=== PATIENT | female | born 1985 | race Caucasian/White ===

== ENCOUNTER 2017-01-27 09:32 | Emergency (ER) | payer BC ==
[2017-01-27 09:42] VITALS: BP 100/70
--- NOTE | 2017-01-27 10:04 | UC ---
Throat Pain/Nasal Denilson HPI - HPI Summary HPI Summary: 31 y/o female presents to the urgent care c/o sore, swollen glands,fever at home , difficulty swallowing, Nasal congestion, dry cough for the past 10 days. Pain is 6/10 radiates to left ear. She was tested for strep and mono yesterday, both negative. She is allergic to Augmentin. She is requesting ABX since she has been with symptoms for so long. Pt denies SOB, chest pain, N/V/D, abdominal pain , - History of Current Complaint Chief Complaint: UCGeneralIllness Stated Complaint: THROAT COMPLAINT Time Seen by Provider: 01/27/17 10:01 Hx Obtained From: Patient Hx Last Menstrual Period: 12/29/16 Onset/Duration: Gradual Onset, Lasting Days - 10 dyas, Still Present Severity: Moderate Pain Intensity: 6 Pain Scale Used: 0-10 Numeric Cough: Nonproductive Associated Signs & Symptoms: Positive: Dysphagia, Nasal Discharge - yellowish discharge, Fever - at home - Epiglottits Risk Factors Epiglottis Risk Factors: Negative - Allergies/Home Medications Allergies/Adverse Reactions: Allergies Allergy/AdvReac Type Severity Reaction Status Date / Time Amoxicillin [From Augmentin] Allergy Hives Verified 01/27/17 09:37 Clavulanic Acid Allergy Hives Verified 01/27/17 09:37 [From Augmentin] PMH/Surg Hx/FS Hx/Imm Hx Previously Healthy: Yes Respiratory History: Asthma - Surgical History Surgical History: Yes Surgery Procedure, Year, and Place: appendix - Family History Known Family History: Positive: Hypertension Family History: Breast cancer, uterine CA - Social History Occupation: Employed Full-time Lives: With Family Alcohol Use: Occasionally Substance Use Type: None Smoking Status (MU): Never Smoked Tobacco - Immunization History Most Recent Influenza Vaccination: up to date Most Recent Tetanus Shot: up tp date Review of Systems Constitutional: Fever - subjective at home Skin: Negative Eyes: Negative ENT: Sore Throat, Ear Ache, Nasal Discharge - yellwosih discharge, Sinus Congestion Respiratory: Cough - dry Cardiovascular: Negative Gastrointestinal: Negative Genitourinary: Negative Motor: Negative Neurovascular: Negative Musculoskeletal: Negative Neurological: Negative Psychological: Negative Is Patient Immunocompromised?: No All Other Systems Reviewed And Are Negative: Yes Physical Exam Triage Information Reviewed: Yes Appearance: Well-Appearing, No Pain Distress, Well-Nourished Vital Signs: Initial Vital Signs Temp 98.6 F 01/27/17 09:38 Pulse 73 01/27/17 09:38 Resp 16 01/27/17 09:38 BP 100/70 01/27/17 09:38 Pulse Ox 100 01/27/17 09:38 Vital Signs Reviewed: Yes Eye Exam: Normal Eyes: Positive: Conjunctiva Clear - PERRLA, EOMI ENT: Positive: Normal ENT inspection, Hearing grossly normal, Pharyngeal erythema - with pethechial palate, no exudate, Nasal congestion - mild edematoud nasal mucosa with yellowish nasal discharge, TMs normal, Tonsillar swelling. Negative: Tonsillar exudate Neck exam: Normal Neck: Positive: Supple, Nontender, Enlarged Nodes @ - B/L anterior cervical lymphadenoapathy tender to palpation Respiratory Exam: Normal Respiratory: Positive: Chest non-tender, Lungs clear, Normal breath sounds Cardiovascular Exam: Normal Cardiovascular: Positive: RRR, No Murmur, Pulses Normal Abdominal Exam: Normal Abdomen Description: Positive: Nontender, No Organomegaly, Soft. Negative: CVA Tenderness (R), CVA Tenderness (L) Bowel Sounds: Positive: Present Musculoskeletal Exam: Normal Throat Pain/Nasal Course/Dx - Course Course Of Treatment: 31 y/o female presents to the urgent care c/o sore, swollen glands,fever at home, difficulty swallowing, Nasal congestion, dry cough for the past 10 days. Pain is 6/10 radiates to left ear. She was tested for strep and mono yesterday, both negative. She is allergic to Augmentin. She is requesting ABX since she has been with symptoms for so long. Pt denies SOB, chest pain, N/V/D, abdominal pain. Hx obtained. Pt Rx Z-pelon and Iburpofen PO to alleviate symptoms. Pt given excuse for work as requested. Pt advised to rest, increase fluid intake, avoid strenuous exercise and eat well. Also advised If symptoms do not improve or worsen please return to the urgent care or f/u with your PCP for further evaluation and treatment. Pt understood and agreed. - Differential Dx/Diagnosis Differential Diagnosis/HQI/PQRI: Influenza, Laryngitis, Mononucleosis, Pharyngitis, Sinusitis, Tonsillitis, URI Provider Diagnoses: 1- Acute pharyngitis Discharge - Discharge Plan Condition: Stable Disposition: HOME Prescriptions: Azithromycin TAB* [Zithromax TAB (Z-PELON) 250 mg #6 tabs] 2 tab PO .TODAY, THEN 1 DAILY #1 pelon Ibuprofen TAB* [Motrin TAB* 800 MG] 800 mg PO Q6H #20 tab Patient Education Materials: Pharyngitis (ED) Forms: *Work Release Referrals: Sydnie Man, DOCUMENTATION ANALYST [Primary Care Provider] - If Needed Additional Instructions: 1- Please take the full course of the antibiotic to avoid resistance. 2-Please take ibuprofen PO q6-8hrs prn as instructed after meals to alleviate pain and swelling. Rest, increse fluid intake, eat well, avoid strenuous exercise 3-If symptoms do not improve or worsen please return to the urgent care or f/u with your PCP for further evaluation and treatment.
== END 2017-01-27 10:20 | disposition home or self-care (01) ==
LOC: UCEAST 09:32
DX: J02.0 Streptococcal pharyngitis (principal)
CPT/HCPCS: 99212; G0463

== ENCOUNTER 2018-09-03 11:29 | Day surgery (SDC) | payer OTHER ==
[~2018-09-03 11:29] MED LIST: Buffered Lidocaine 1% SYRIN* 1 ML/SYRINGE INTRADERM ONE; Dexamethasone IV* 4 MG/ML 1 ML (4 MG) IV SLOW PU ONE; Famotidine IV* 10 MG/ML 2 ML (20 mg) IV ONE; Lactated Ringers 1000 ML Bag* 1,000 ML IV SCH
[2018-09-03] MEDS ORDERED: Dexamethasone IV* 4 MG/ML 1 ML (4 MG) ONE (12:11)
[2018-09-03] MEDS ORDERED: Buffered Lidocaine 1% SYRIN* 1 ML/SYRINGE INTRADERM ONE (12:11)
[2018-09-03] MEDS ORDERED: Famotidine IV* 10 MG/ML 2 ML (20 mg) ONE (12:11)
[2018-09-03] MEDS ORDERED: Midazolam* 1 MG/ML 2 ML VIAL (2 MG) ONE (13:32)
[2018-09-03] MEDS ORDERED: fentaNYL* 50 MCG/ML 2 ML VIAL (100 MCG VIAL) ONE ×2 (13:32→15:08)
[2018-09-03] MEDS ORDERED: Oxymetazoline 0.05% NASAL SPR* 15 ML BTL ONE (13:40)
[2018-09-03] MEDS ORDERED: Lidocaine 4% TOPICAL* 50 ML TOP.SOLN ONE (13:41)
[2018-09-03] MEDS ORDERED: Bacitracin OINTMENT* 0.5% 0.5 oz TUBE ONE (13:41)
[2018-09-03] MEDS ORDERED: Lidocain 1% EPI 1:100,000 * 30 ML MDV ONE (13:41)
[2018-09-03] MEDS ORDERED: Triamcinolone Acetonide* 40 MG/ML 1 ML VIAL ONE (13:41)
[2018-09-03] MEDS ORDERED: Ondansetron INJ* 2 MG/ML VIAL ONE (13:42)
[2018-09-03] MEDS ORDERED: Lidocaine 2% PF * 5 ML VIAL ONE (13:42)
[2018-09-03] MEDS ORDERED: Propofol* 10 MG/ML 20 ML BTL ONE (13:42)
[2018-09-03] MEDS ORDERED: Ibuprofen TAB* 400 MG ONE (14:58)
[2018-09-03] MEDS ORDERED: DiMENhydriNATE IV* 50 MG/ML VIAL IV PUSH PRN (15:43)
[2018-09-03] MEDS ORDERED: fentaNYL* 50 MCG/ML 2 ML VIAL (100 MCG VIAL) IV PRN (15:43)
[2018-09-03] MEDS ORDERED: Naloxone* 0.4 MG/ML 1 ML VIAL IV PRN (15:43)
[2018-09-03 16:38] VITALS: BP 113/72
--- NOTE | 2018-09-03 23:24 | OP ---
DATE OF OPERATION: 09/03/18 - SDS DATE OF : 81 SURGEON: Archie Tobin MD PRE-OP DIAGNOSIS: Chronic ethmoidal maxillary sinusitis with nasal polyposis. POST-OP DIAGNOSIS: Chronic ethmoidal maxillary sinusitis with nasal polyposis. OPERATIVE PROCEDURE: Bilateral functional endoscopic sinus surgery with maxillary antrostomies with debridement of polyp and anterior and posterior ethmoidectomy under general laryngeal mask airway anesthesia. COMPLICATIONS: None. DISPOSITION: Good. SPECIMENS: Left and right sinus contents. BLOOD LOSS: Minimal. DESCRIPTION OF PROCEDURE: The patient was taken to the operating room and placed in the supine position on the operating room table. General anesthesia was induced and she was maintained with laryngeal mask airway anesthesia. Nose was packed bilaterally with cottonoids impregnated with oxymetazoline and 4% lidocaine. She was dapped for the surgery. The packs were removed, and under endoscopic guidance, her middle turbinates, uncinate process, anterior ethmoid bullae were injected with 1% lidocaine with 1:100,000 epinephrine. The polyps in the middle meatus were debrided with Blakesley and the debrider. The curved seeker was used to find the ostium of the maxillary sinus. The sickle knife was used to make an anterior cut. The uncinate process was debrided. The ethmoids were entered with a curette and then widened. Polypoid mucosa was debrided. The ground lamella was opened into the posterior ethmoid. Again, some polypoid tissue was debrided. The Stammberger Sinu-Foam mixed Kenalog was filled into middle meatus and the sinuses. This was done bilaterally. The patient tolerated this well , no complications, and transferred to the recovery room in stable condition. [id number]/[facility] #: [id number] [facility]
== END 2018-09-03 16:41 | disposition home or self-care (01) ==
LOC: OR 11:29
PROVIDERS: ATTEND Otolaryngology
DX: J33.0 Polyp of nasal cavity (principal); J32.0 Chronic maxillary sinusitis; J32.2 Chronic ethmoidal sinusitis; F41.9 Anxiety disorder, unspecified; J45.909 Unspecified asthma, uncomplicated; Z88.8 Allergy status to other drugs, medicaments and biological substances
CPT/HCPCS: 81025; 88305; A9270-GY; J1100; J2250; J2405; J2704; J3010; J3301